=== PATIENT | male | born 1965 | race Caucasian/White ===

== ENCOUNTER 2016-06-05 18:41 | Emergency (ER) | payer BC, OTHER ==
[2016-06-05 19:01] VITALS: BP 148/91
--- NOTE | 2016-06-05 19:09 | ERNOTE ---
Integumentary HPI - Narrative Date of Service: 06/05/16 - General Presenting Symptoms: abscess Time Seen by Provider: 06/05/16 19:08 Source: patient, family - Immun/Allergies/Home Medications Immunizations: IMMUNIZATION HX Immunizations Up to Date Yes History of Influenza Vaccine Yes Hx Pneumococcal Vaccination No Allergies/Adverse Reactions: Allergies Allergy/AdvReac Type Severity Reaction Status Date / Time Penicillins Allergy Verified 06/05/16 18:55 Home Medications: HOME MEDICATIONS ALPRAZolam PRN 06/05/16 [Last Taken Unknown] Atorvastatin Calcium DAILY 06/05/16 [Last Taken Unknown] HYDROcodone/ACETAMINOPHEN [Lortab 7.5-325 mg Tablet] 1 each PO QID PRN #20 tablet 06/05/16 [Last Taken Unknown] Sulfamethoxazole/Trimethoprim [Bactrim Ds] 1 tab PO BID 06/05/16 [Last Taken Unknown] Tramadol HCl PRN 06/05/16 [Last Taken Unknown] metFORMIN HCL [Fortamet] 500 mg PO BID 06/05/16 [Last Taken Unknown] - History of Present Illness Narrative: pt has history of peridrectal abscess first treated in [place] by Dr. Fields 2 weeks ago with I & D but it is now back in the past 2-3 days. Today he started Bactrim called in by his PCP and has an PPt. to return to [place] on 07 June but it hurts too much to wait that long. He is diabetic and gluc was 140 . no fever. Quality: Reports: painful Review of Systems - Review of Systems Constitutional: Present: See HPI Skin: Present: See HPI All Other Systems: All systems neg except as marked - Patient's Past Medical History Patient History - Medical: Anxiety, Arthritis, Diabetes Type 2, Depression, Liver Disease Patient History - Cardiac/Respiratory: Hyperlipidemia Patient History - Cancer: No Hx of Cancer Patient History - Surgical Procedures: Back Surgery Patient History - Other: None - Social History Living Situations: home Abuse History: No History of abuse Psych History: Hx of Anxiety, Hx of Depression Smoking Status: Current every day smoker Have you smoked in the past 12 months: Yes Patient requests Smoking Cessation Consult: No Initiate information on Smoking Cessation: No Alcohol Use: none Drug Use: none - Immunizations Immunizations Up to Date: Yes Hx Pneumococcal Vaccination: No History of Influenza Vaccine: Yes Physical Exam - Physical Exam General Appearance: Present: wd/wn, alert, moderate distress - large obese man, a & o & coop. VSS Rectal Exam: Present: other - PT WITH LARGE REDDENED TENDER FLUCTUANT LEFT INFERIOR PERIRECTAL ABCESSS WITH MINIMAL DRAINAGE. IF VERY SWOLLEN AND TENDER. ED Progress - Vital Signs Vital Signs: Vital Signs 06/05/16 18:54 Temperature 36.1 C L Pulse Rate 107 H Respiratory 18 Rate Blood Pressure 148/91 O2 Sat by Pulse 95 Oximetry - Progress/Reassessment Chief Complaint: Abscess Procedures Perineum Anesthesia: 2% Lidocaine, Local I & D Prep: betadine prep Blade Size: 11 Findings and Actions: purulent drainage large, probed/breakup loculation, packed with guaze, cultures obtained Complications: Pt [place] procedure well Departure Clinical Impression: Perirectal abscess - Departure Disposition: Home Follow Up Needed Condition: Fair Instructions: Perirectal Abscess Additional Instructions: use warm compresses to the area 30 mins every 4 hours. Take your Bactrim as directed. Use Ibuprofen for routine pain. Take over the counter Colace to keep stools soft. Use the stronger pain meds if needed, as dirercted. Recheck with DR. Fields on tuesday as planned. Prescriptions: HYDROcodone/ACETAMINOPHEN [Lortab 7.5-325 mg Tablet] 1 each PO QID PRN #20 tablet PRN Reason: Pain
[2016-06-05] MEDS ORDERED: LIDOCAINE HCL 1,000 MG/50 ML VIAL ONE (19:26)
[2016-06-05] MEDS ORDERED: HYDROcodone/ACETAMINOPHEN 1 EACH TABLET PO ONE (19:52)
[2016-06-05] MEDS ORDERED: HYDROcodone/ACETAMINOPHEN 1 EACH TABLET ONE (19:53)
== END 2016-06-05 19:55 | disposition home or self-care (01) ==
LOC: ER 18:41
PROC: 0D9P0ZZ Drainage of Rectum, Open Approach (ICD-10-PCS; principal; 2016-06-05)
DX: K61.1 Rectal abscess (principal); Z72.0 Tobacco use; E11.9 Type 2 diabetes mellitus without complications